=== PATIENT | male | born 1935 | race Caucasian/White ===

== ENCOUNTER 2022-08-21 15:09 | Emergency (ER) | payer MEDICARE, OTHER ==
[2022-08-21] MEDS ORDERED: cefTRIAXone\\ROCEPHIN 1 GM VIAL ONE (15:57)
[2022-08-21 16:20] LABS: #Eosinphils 0.3 10x3/uL (0.0-0.5); #Monocytes 0.4 10x3/uL (0.0-1.1); #Neutrophils 2.5 10x3/uL (1.5-8.4); %Basophils 0.7 % (0.0-2.0); %Eosinophils 7.4 % (0.0-6.0); %Lymphocytes 25.4 % (18.0-47.0); %Monocytes 8.1 % (0.0-10.0); %Neutrophils 58.2 % (40.0-75.0); Hemoglobin 12.4 g/dL (13.5-17.5); Mean Corpuscular HGB CONC 33.4 g/dL (32.0-36.0); Mean Corpuscular Hemoglobin 31.3 pg (27.0-33.0); Mean Corpuscular Volume 93.7 fl (81.2-95.1); Mean Platelet Volume 10.5 fl (7.4-10.4); Platelet Count 126 10x3/uL (150-450); RBC Distribution Width 14.6 % (11.5-14.5); Red Blood Cell (RBC) Count 3.96 10x6/uL (4.32-5.72); White Blood Cell (WBC) Count 4.3 10x3/uL (3.5-10.5)
[2022-08-21 16:31] LABS: ALT (SGPT) 17 U/L (8-55); AST (SGOT) 28 U/L (5-34); Albumin 3.5 g/dL (3.4-4.8); Alkaline Phosphatase 91 U/L (40-110); Anion Gap 14 mmol/L (10-20); BUN (Urea Nitrogen) 20 mg/dL (8.4-25.7); Bilirubin, Total 0.7 mg/dL (0.2-1.2); Calc. Creatinine Clearance 0 mL/min (70-130); Calcium 8.9 mg/dL (7.8-10.44); Carbon Dioxide 24 mmol/L (23-31); Chloride 102 mmol/L (98-107); Estimated GFR 50; Globulin 3.4 g/dL (2.4-3.5); Glucose 100 mg/dL (83-110); Potassium 4.2 mmol/L (3.5-5.1); Protein, Total 6.9 g/dL (5.8-8.1); Sodium 136 mmol/L (136-145)
== END 2022-08-21 17:10 | disposition home or self-care (01) ==
LOC: CSHERS 15:09
DX: S80.11XA Contusion of right lower leg, initial encounter (principal); L03.115 Cellulitis of right lower limb; E78.00 Pure hypercholesterolemia, unspecified; I10 Essential (primary) hypertension; X58.XXXA Exposure to other specified factors, initial encounter
CPT/HCPCS: 36415; 80053; 85025; 96365; J0696